=== PATIENT | female | born 1950 | race Caucasian/White ===

== ENCOUNTER 2016-10-07 06:07 | Emergency (ER) | payer BC ==
[~2016-10-07] VITALS: Ht 157.5 cm; Wt 95.1 kg
[~2016-10-07 06:07] MED LIST: HYDROCODON-ACE1 EAC7 PO; LISINOPRIL20 MG PO; METOPROLOL TART50 MG PO; PANTOPRAZOLE SO40 MG PO; VITAMIN B-12500 MC3 PO; VITAMIN D32000 UNI1 PO
[2016-10-07 07:27] LABS: HEMATOCRIT 41.3 % (36.0-46.0); MCH 28.9 PG (29.0-34.0); MCHC 34.6 G/DL (30.0-36.0); MCV 83.6 FL (83-99); MEAN PLAT.VOLUME 10.7 uM^3 (9.5-12.4); PLATELET COUNT 298 K/uL (156-360); RBC DIS.WIDTH-SD 42.1 % (39-53); RED BLOOD COUNT 4.94 M/uL (3.80-5.20)
[2016-10-07 07:28] LABS: WHITE BLOOD COUNT 10.6 K/uL (4.1-10.2)
[2016-10-07 07:39] LABS: CHLORIDE 99 mEq/L (99-109); POTASSIUM 4.1 mEq/L (3.7-5.4); SODIUM 133 mEq/L (136-147)
[2016-10-07 07:41] LABS: GLUCOSE 131 mg/dL (70-99)
[2016-10-07 07:42] LABS: ANION GAP 14 MEQ/L (2-14)
[2016-10-07 07:43] LABS: TOTAL BILIRUBIN 0.9 mg/dL (0.0-1.0)
[2016-10-07 07:45] LABS: ALKALINE PHOSPHATASE 77 IU/L (3-129); GFR ESTIMATE (CALCULATED) 48 mL/min/
[2016-10-07 07:46] LABS: UREA NITROGEN (BUN) 14 mg/dL (9-23)
[2016-10-07 11:45] VITALS: BP 103/68
== END 2016-10-07 11:49 | disposition home or self-care (01) ==
LOC: EME 06:07
DX: S20.212A Contusion of left front wall of thorax, initial encounter (principal); R42 Dizziness and giddiness; I10 Essential (primary) hypertension; K21.9 Gastro-esophageal reflux disease without esophagitis; W01.198A Fall on same level from slipping, tripping and stumbling with subsequent striking against other object, initial encounter; Z98.84 Bariatric surgery status; Z88.0 Allergy status to penicillin
CPT/HCPCS: 70450; 71101; 80053; 81003; 85027; 93005; 99281; 99284; J1885; J2765; J7030

== ENCOUNTER 2016-11-13 12:10 | Emergency (ER) | payer BC ==
[~2016-11-13] VITALS: Ht 160 cm; Wt 87.3 kg
[2016-11-13 12:48] LABS: HEMATOCRIT 41.6 % (36.0-46.0); MCH 29.2 PG (29.0-34.0); MCHC 34.6 G/DL (30.0-36.0); MCV 84.4 FL (83-99); MEAN PLAT.VOLUME 10.8 uM^3 (9.5-12.4); PLATELET COUNT 330 K/uL (156-360); RBC DIS.WIDTH-CV 13.5 % (11.8-14.6); RED BLOOD COUNT 4.93 M/uL (3.80-5.20); WHITE BLOOD COUNT 8.2 K/uL (4.1-10.2)
[2016-11-13 13:07] LABS: CHLORIDE 99 mEq/L (99-109); POTASSIUM 4.3 mEq/L (3.7-5.4); SODIUM 132 mEq/L (136-147)
[2016-11-13 13:08] LABS: GLUCOSE 128 mg/dL (70-99)
[2016-11-13 13:10] LABS: ANION GAP 13 MEQ/L (2-14); TROP-I INTERPRETATION NEGATIVE; TROPONIN-I 0.05 ng/mL (0.0-0.30)
[2016-11-13 13:12] LABS: GFR ESTIMATE (CALCULATED) > 59 mL/min/
[2016-11-13 13:13] LABS: UREA NITROGEN (BUN) 11 mg/dL (9-23)
[2016-11-13] MEDS ORDERED: LIDODERM 5% P1 PATCH TD (14:54)
[2016-11-13] MEDS ORDERED: PREDNISONE20 MG PO (14:54)
[2016-11-13] MEDS ORDERED: NAPROXEN500 MG PO (14:54)
[2016-11-13] MEDS ORDERED: FLEXERIL10 MG PO (14:54)
[2016-11-13 15:39] LABS: TOTAL BILIRUBIN 0.7 mg/dL (0.0-1.0)
[2016-11-13 15:40] LABS: ALKALINE PHOSPHATASE 82 IU/L (3-129)
[2016-11-13 15:42] LABS: DIRECT BILIRUBIN 0.3 mg/dL (0.0-0.3)
[2016-11-13 15:43] LABS: TROP-I INTERPRETATION NEGATIVE; TROPONIN-I 0.05 ng/mL (0.0-0.30)
[2016-11-13 16:02] VITALS: BP 100/78
== END 2016-11-13 16:02 | disposition left against medical advice (07) ==
LOC: EXP 12:10 → EME 12:10 → EXP 16:02
PROVIDERS: Physician Assistant
DX: R11.10 Vomiting, unspecified (principal); R07.89 Other chest pain; I10 Essential (primary) hypertension
CPT/HCPCS: 71020; 80048; 80076; 84484; 85027; 93005; 99281; 99284; J2765; J7030

== ENCOUNTER 2017-05-26 10:55 | Inpatient (IN) | payer OTHER, BC ==
[~2017-05-26] VITALS: Ht 160 cm; Wt 79.2 kg
[~2017-05-26 10:55] MED LIST changes: +FLEXERIL10 MG PO; +LIDODERM 5% P1 PATCH TD; +NAPROXEN500 MG PO; +PREDNISONE20 MG PO
[2017-05-26 11:23] LABS: MCH 30.7 PG (29.0-34.0); MCHC 34.2 G/DL (30.0-36.0); MCV 89.9 FL (83-99); MEAN PLAT.VOLUME 10.4 uM^3 (9.5-12.4); PLATELET COUNT 236 K/uL (156-360); RBC DIS.WIDTH-SD 42.2 % (39-53); RED BLOOD COUNT 5.34 M/uL (3.80-5.20); WHITE BLOOD COUNT 19.2 K/uL (4.1-10.2)
[2017-05-26 11:38] LABS: CHLORIDE 101 mEq/L (99-109); POTASSIUM 4.4 mEq/L (3.7-5.4); SODIUM 135 mEq/L (136-147)
[2017-05-26 11:39] LABS: GLUCOSE 197 mg/dL (70-99)
[2017-05-26 11:41] LABS: ANION GAP 23 MEQ/L (2-14)
[2017-05-26 11:43] LABS: GFR ESTIMATE (CALCULATED) 25 mL/min/
[2017-05-26 11:44] LABS: UREA NITROGEN (BUN) 23 mg/dL (9-23)
[2017-05-26 11:48] LABS: TROP-I INTERPRETATION NEGATIVE; TROPONIN-I 0.04 ng/mL (0.0-0.30)
[2017-05-26 14:38] LABS: ADD MIUA? YES; BILIRUBIN NEGATIVE; BLOOD MODERATE; COLOR YELLOW ((YELLOW)); GLUCOSE (STRIP) 150; KETONES 5; LEUKOCYTES NEGATIVE; NITRITE NEGATIVE; PROTEIN (STRIP) >=500; SPECIFIC GRAVITY 1.019 (1.000-1.030); UROBILINOGEN 0.2 MG/DL (0.2-1.0)
[2017-05-26 14:45] LABS: BACTERIA RARE /HPF; EPITHELIAL CELLS RARE /HPF; MUCUS TRACE /LPF; RED BLOOD CELLS 40-50 /HPF (0-5); UCUL ADDED? YES
[2017-05-26] MEDS ORDERED: SERTRALINE HCL50 MG PO (14:58)
[2017-05-26] MEDS ORDERED: TOPIRAMATE50 MG PO (14:59)
[2017-05-26] MEDS ORDERED: ASPIR-LOW81 MG PO (14:59)
[2017-05-26] MEDS ORDERED: PHENADOZ25 MG PR (14:59)
[2017-05-26 18:45] VITALS: BP 110/69
[2017-05-26 18:47] VITALS: BP 110/69
[2017-05-26 19:22] LABS: TROP-I INTERPRETATION NEGATIVE; TROPONIN-I 0.08 ng/mL (0.0-0.30)
[2017-05-26 22:28] VITALS: BP 86/50; BP 86/99
[2017-05-27 00:42] VITALS: BP 92/58
[2017-05-27 01:15] LABS: TROP-I INTERPRETATION NEGATIVE; TROPONIN-I 0.08 ng/mL (0.0-0.30)
[2017-05-27 02:54] VITALS: BP 122/88
[2017-05-27 05:53] LABS: HEMATOCRIT 32.8 % (36.0-46.0); MCHC 33.8 G/DL (30.0-36.0); MCV 91.6 FL (83-99); RBC DIS.WIDTH-CV 13.3 % (11.8-14.6); RED BLOOD COUNT 3.58 M/uL (3.80-5.20); WHITE BLOOD COUNT 9.8 K/uL (4.1-10.2)
[2017-05-27 06:15] LABS: MEAN PLAT.VOLUME 10.8 uM^3 (9.5-12.4); PLAT.SUFFICIENCY ADEQUATE
[2017-05-27 06:18] LABS: ALKALINE PHOSPHATASE 56 IU/L (3-129); ANION GAP 8 MEQ/L (2-14); CHLORIDE 107 MEQ/L (99-109); GFR ESTIMATE (CALCULATED) 23 mL/min/; PLATELET COUNT 149 K/uL (156-360); POTASSIUM 4.3 MEQ/L (3.7-5.4); SAMPLE HEMOLYSIS CHECK 0; SAMPLE ICTERIC CHECK 0; SAMPLE LIPEMIA CHECK 0; SODIUM 136 MEQ/L (136-147); TOTAL BILIRUBIN 0.7 MG/DL (0.0-1.0); VANCOMYCIN, TROUGH 12.7 MCG/ML (10-20)
[2017-05-27 06:20] LABS: GLUCOSE 102 mg/dL (70-99); UREA NITROGEN (BUN) 36 mg/dL (9-23)
[2017-05-27 09:45] VITALS: BP 111/71
[2017-05-27 11:25] VITALS: BP 112/71
[2017-05-27 16:12] VITALS: BP 117/81
[2017-05-27 19:17] VITALS: BP 135/97
[2017-05-28 00:20] VITALS: BP 104/57
[2017-05-28 04:00] VITALS: BP 134/82
[2017-05-28 05:44] LABS: EOSINOPHIL (%) 1.3 % (0-5); EOSINOPHIL COUNT 0.1 K/uL (0-0.3); HEMATOCRIT 27.9 % (36.0-46.0); IMMATURE GRANULOCYTE (%) 0.4 % (0.0-0.7); INSTRUMENT ABS NEUTROPHIL CT 3.2 K/uL; LYMPHOCYTE COUNT 1.5 K/uL (1.0-2.8); MCH 30.5 PG (29.0-34.0); MCV 92.4 FL (83-99); MEAN PLAT.VOLUME 10.5 uM^3 (9.5-12.4); MONOCYTE (%) 8.9 % (3-12); MONOCYTE COUNT 0.5 K/uL (0-0.8); NEUTROPHIL (%) 60.7 % (45-76); NEUTROPHIL COUNT 3.2 K/uL (1.8-6.4); PLATELET COUNT 119 K/uL (156-360); RBC DIS.WIDTH-CV 13.2 % (11.8-14.6); RBC DIS.WIDTH-SD 44.9 % (39-53); RED BLOOD COUNT 3.02 M/uL (3.80-5.20); WHITE BLOOD COUNT 5.3 K/uL (4.1-10.2)
[2017-05-28 06:35] LABS: ANION GAP 8 MEQ/L (2-14); CHLORIDE 110 MEQ/L (99-109); GFR ESTIMATE (CALCULATED) 28 mL/min/; GLUCOSE 86 mg/dL (70-99); MAGNESIUM 1.8 mg/dl (1.3-2.7); POTASSIUM 3.5 MEQ/L (3.7-5.4); SAMPLE HEMOLYSIS CHECK 0; SAMPLE ICTERIC CHECK 0; SAMPLE LIPEMIA CHECK 0; SODIUM 138 MEQ/L (136-147); UREA NITROGEN (BUN) 34 mg/dL (9-23); VANCOMYCIN, TROUGH 15.9 MCG/ML (10-20)
[2017-05-28 06:51] LABS: URIC ACID 5.6 mg/dL (3.1-9.2)
[2017-05-28 08:03] VITALS: BP 116/75
[2017-05-28 15:28] LABS: ADD MIUA? YES; BILIRUBIN NEGATIVE; BLOOD SMALL; COLOR STRAW ((YELLOW)); GLUCOSE (STRIP) NEGATIVE; KETONES NEGATIVE; LEUKOCYTES NEGATIVE; NITRITE NEGATIVE; PROTEIN (STRIP) NEGATIVE; SPECIFIC GRAVITY 1.011 (1.000-1.030); UROBILINOGEN 0.2 MG/DL (0.2-1.0)
[2017-05-28 16:34] LABS: BACTERIA NONE SEEN /HPF; EPITHELIAL CELLS RARE /HPF; MUCUS TRACE /LPF; RED BLOOD CELLS 0-5 /HPF (0-5); WHITE BLOOD CELLS 0-5 /HPF (0-5)
[2017-05-28 16:38] VITALS: BP 136/92
[2017-05-28 16:42] LABS: UR CREATININE CONCENTRATION 59.1 MG/DL
[2017-05-28 18:10] VITALS: BP 141/88
[2017-05-28 19:38] VITALS: BP 133/80
[2017-05-29 00:36] VITALS: BP 166/83
[2017-05-29 04:11] VITALS: BP 169/84
[2017-05-29 08:00] VITALS: BP 190/102
[2017-05-29 08:24] LABS: ANION GAP 16 MEQ/L (2-14); CHLORIDE 106 MEQ/L (99-109); GFR ESTIMATE (CALCULATED) 27 mL/min/; GLUCOSE 182 mg/dL (70-99); POTASSIUM 4.4 MEQ/L (3.7-5.4); SAMPLE HEMOLYSIS CHECK 1; SAMPLE ICTERIC CHECK 0; SAMPLE LIPEMIA CHECK 0; SODIUM 135 MEQ/L (136-147); UREA NITROGEN (BUN) 41 mg/dL (9-23)
[2017-05-29 10:08] LABS: BASOPHIL COUNT 0.1 K/uL (0-0.1); EOSINOPHIL (%) 0 % (0-5); HEMATOCRIT 45.6 % (36.0-46.0); IMMATURE GRANULOCYTE (%) 2.8 % (0.0-0.7); IMMATURE GRANULOCYTE COUNT 0.5 K/uL; LYMPHOCYTE COUNT 0.6 K/uL (1.0-2.8); MCH 30.7 PG (29.0-34.0); MCHC 34.6 G/DL (30.0-36.0); MCV 88.5 FL (83-99); MONOCYTE (%) 5.9 % (3-12); MONOCYTE COUNT 0.9 K/uL (0-0.8); NEUTROPHIL (%) 87.6 % (45-76); RBC DIS.WIDTH-CV 13.3 % (11.8-14.6); RBC DIS.WIDTH-SD 42.7 % (39-53)
[2017-05-29 10:11] LABS: BASE EXCESS -10.5 mEq/L (-3 to +3); BICARBONATE 13.2 mEq/L (22-26); CARBOXY HGB 2.8 % (0-5); COMMENTS - BLOOD GASES A+C+; FI02 21 %; METHEMOGLOBIN 1.7 % (0-1.5); PCO2 24 mm Hg (35-45); PO2 81 mm Hg (80-100); SITE RR; pH 7.35 (7.35-7.45)
[2017-05-29 10:16] LABS: RED BLOOD COUNT 5.15 M/uL (3.80-5.20)
[2017-05-29 10:58] LABS: MEAN PLAT.VOLUME 11.9 uM^3 (9.5-12.4); PLAT.SUFFICIENCY DECREASED
[2017-05-29 11:04] LABS: PLATELET COUNT 68 K/uL (156-360)
[2017-05-29 11:08] VITALS: BP 186/117
[2017-05-29 13:27] LABS: ANION GAP 12 MEQ/L (2-14); CHLORIDE 106 MEQ/L (99-109); CREATINE KINASE 71 IU/L (1-294); GFR ESTIMATE (CALCULATED) 24 mL/min/; GLUCOSE 158 mg/dL (70-99); POTASSIUM 4.2 MEQ/L (3.7-5.4); SAMPLE HEMOLYSIS CHECK 0; SAMPLE ICTERIC CHECK 0; SAMPLE LIPEMIA CHECK 0; SODIUM 133 MEQ/L (136-147); UREA NITROGEN (BUN) 41 mg/dL (9-23)
[2017-05-29 14:05] LABS: EOSINOPHIL (%) 0 % (0-5); HEMATOCRIT 36.3 % (36.0-46.0); IMMATURE GRANULOCYTE (%) 1.7 % (0.0-0.7); IMMATURE GRANULOCYTE COUNT 0.2 K/uL; INSTRUMENT ABS NEUTROPHIL CT 9.1 K/uL; LYMPHOCYTE COUNT 0.6 K/uL (1.0-2.8); MCH 31.2 PG (29.0-34.0); MCHC 35.5 G/DL (30.0-36.0); MCV 87.9 FL (83-99); MONOCYTE (%) 7.5 % (3-12); MONOCYTE COUNT 0.8 K/uL (0-0.8); NEUTROPHIL (%) 84.5 % (45-76); NEUTROPHIL COUNT 9.1 K/uL (1.8-6.4); RBC DIS.WIDTH-CV 13.3 % (11.8-14.6); RBC DIS.WIDTH-SD 43.1 % (39-53); RED BLOOD COUNT 4.13 M/uL (3.80-5.20); WHITE BLOOD COUNT 10.7 K/uL (4.1-10.2)
[2017-05-29 14:13] LABS: IMM.PLATELET FRACTION 7.1 (1-7); MEAN PLAT.VOLUME 11.3 uM^3 (9.5-12.4); PLAT.SUFFICIENCY DECREASED; PLATELET COUNT 49 K/uL (156-360)
[2017-05-29 16:19] LABS: ADD MIUA? YES; BILIRUBIN NEGATIVE; BLOOD LARGE; COLOR YELLOW ((YELLOW)); GLUCOSE (STRIP) 50; KETONES 5; LEUKOCYTES NEGATIVE; NITRITE NEGATIVE; PROTEIN (STRIP) 100; SPECIFIC GRAVITY 1.014 (1.000-1.030); UROBILINOGEN 0.2 MG/DL (0.2-1.0)
[2017-05-29 16:30] LABS: BACTERIA RARE /HPF; EPITHELIAL CELLS RARE /HPF; GRANULAR CASTS 0-5 /LPF; HYALINE CASTS 0-5 /LPF; MUCUS TRACE /LPF; RED BLOOD CELLS 20-30 /HPF (0-5); WHITE BLOOD CELLS 0-5 /HPF (0-5)
[2017-05-29 16:40] VITALS: BP 168/102
[2017-05-29 16:54] LABS: DIRECT BILIRUBIN 0.2 mg/dL (0.0-0.3)
[2017-05-29 16:59] LABS: ALKALINE PHOSPHATASE 70 IU/L (3-129); LACTATE DEHYDROGENASE 1083 IU/L (20-246); TOTAL BILIRUBIN 1.4 MG/DL (0.0-1.0)
[2017-05-29 17:18] LABS: HEMATOCRIT 34.3 % (36.0-46.0); IMM.RETIC FRACTION 16.9 % (3-19); MCHC 36.2 G/DL (30.0-36.0); MCV 88.6 FL (83-99); RBC DIS.WIDTH-CV 13.8 % (11.8-14.6); RBC DIS.WIDTH-SD 44.4 % (39-53); RED BLOOD COUNT 3.87 M/uL (3.80-5.20); RETIC HGB EQUIVALENT 36.6 (28-36); RETICULOCYTE COUNT 2.7 % (0.5-1.8); WHITE BLOOD COUNT 9.7 K/uL (4.1-10.2)
[2017-05-29 19:30] VITALS: BP 179/89
[2017-05-29 19:43] LABS: ABS NEUTROPHIL COUNT 7.8; EOSINOPHIL ABS CT 0; INSTRUMENT ABS NEUTROPHIL CT 7.5 K/uL
[2017-05-29 20:27] LABS: MEAN PLAT.VOLUME 12.2 uM^3 (9.5-12.4); PLATELET COUNT 45 K/uL (156-360)
[2017-05-30] VITALS: BP 100/70
[2017-05-30 03:58] VITALS: BP 138/77
[2017-05-30 04:50] LABS: EOSINOPHIL (%) 0.9 % (0-5); EOSINOPHIL COUNT 0.1 K/uL (0-0.3); IMMATURE GRANULOCYTE COUNT 0.1 K/uL; INSTRUMENT ABS NEUTROPHIL CT 4.7 K/uL; LYMPHOCYTE COUNT 1.3 K/uL (1.0-2.8); MCH 30.9 PG (29.0-34.0); MCHC 34.8 G/DL (30.0-36.0); MCV 88.7 FL (83-99); MEAN PLAT.VOLUME 11.8 uM^3 (9.5-12.4); MONOCYTE (%) 10.1 % (3-12); MONOCYTE COUNT 0.7 K/uL (0-0.8); NEUTROPHIL (%) 68.6 % (45-76); NEUTROPHIL COUNT 4.7 K/uL (1.8-6.4); PLATELET COUNT 54 K/uL (156-360); RBC DIS.WIDTH-CV 13.8 % (11.8-14.6); RBC DIS.WIDTH-SD 44.5 % (39-53); RED BLOOD COUNT 2.82 M/uL (3.80-5.20); WHITE BLOOD COUNT 6.8 K/uL (4.1-10.2)
[2017-05-30 04:53] LABS: CHLORIDE 110 mEq/L (99-109)
[2017-05-30 04:54] LABS: POTASSIUM 3.7 mEq/L (3.7-5.4); SODIUM 137 mEq/L (136-147)
[2017-05-30 05:23] LABS: MAGNESIUM 1.5 mg/dL (1.3-2.7)
[2017-05-30 05:28] LABS: ANION GAP 10 MEQ/L (2-14)
[2017-05-30 05:30] LABS: GFR ESTIMATE (CALCULATED) 23 mL/min/
[2017-05-30 05:31] LABS: UREA NITROGEN (BUN) 44 mg/dL (9-23)
[2017-05-30 05:35] LABS: GLUCOSE 104 mg/dL (70-99)
[2017-05-30 07:43] VITALS: BP 116/63
[2017-05-30 11:26] VITALS: BP 130/86
[2017-05-30 14:30] LABS: C3 COMPLEMENT 101 MG/DL (58-170); C4 COMPLEMENT 21 MG/DL (10-40)
[2017-05-30 15:42] VITALS: BP 136/79
[2017-05-30 16:07] LABS: ABSOLUTE RETICULOCYTE CT. 0.1 M/uL (0.02-0.08); IMM.RETIC FRACTION 9.9 % (3-19); RETIC HGB EQUIVALENT 37.3 (28-36); RETICULOCYTE COUNT 2.7 % (0.5-1.8)
[2017-05-30 17:07] LABS: HBSG INDEX 0.19; HPCA INDEX 0.06
[2017-05-30 17:08] LABS: ANTI-HEPATITIS A VIRUS (IGM) Nonreactive; HAV INDEX 0.23
[2017-05-30 17:09] LABS: ANTI-HEPATITIS B CORE (IGM) Nonreactive; HBC IgM INDEX 0.07
[2017-05-30 19:55] VITALS: BP 133/73
[2017-05-31 00:23] VITALS: BP 137/78
[2017-05-31 03:36] VITALS: BP 120/76
[2017-05-31 07:10] VITALS: BP 144/96
[2017-05-31 07:20] LABS: EOSINOPHIL (%) 1.4 % (0-5); EOSINOPHIL COUNT 0.1 K/uL (0-0.3); HEMATOCRIT 22.8 % (36.0-46.0); IMMATURE GRANULOCYTE (%) 1.2 % (0.0-0.7); IMMATURE GRANULOCYTE COUNT 0.1 K/uL; INSTRUMENT ABS NEUTROPHIL CT 2.8 K/uL; LYMPHOCYTE COUNT 1.5 K/uL (1.0-2.8); MCH 31.1 PG (29.0-34.0); MCHC 34.6 G/DL (30.0-36.0); MCV 89.8 FL (83-99); MEAN PLAT.VOLUME 12.4 uM^3 (9.5-12.4); MONOCYTE (%) 10.1 % (3-12); MONOCYTE COUNT 0.5 K/uL (0-0.8); NEUTROPHIL (%) 57.1 % (45-76); NEUTROPHIL COUNT 2.8 K/uL (1.8-6.4); PLATELET COUNT 60 K/uL (156-360); RBC DIS.WIDTH-CV 13.8 % (11.8-14.6); RBC DIS.WIDTH-SD 44.9 % (39-53); RED BLOOD COUNT 2.54 M/uL (3.80-5.20); WHITE BLOOD COUNT 4.9 K/uL (4.1-10.2)
[2017-05-31 08:11] LABS: ALKALINE PHOSPHATASE 46 IU/L (3-129); ANION GAP 6 MEQ/L (2-14); CHLORIDE 105 MEQ/L (99-109); GFR ESTIMATE (CALCULATED) 24 mL/min/; GLUCOSE 91 mg/dL (70-99); POTASSIUM 3.8 MEQ/L (3.7-5.4); SAMPLE HEMOLYSIS CHECK 0; SAMPLE ICTERIC CHECK 0; SAMPLE LIPEMIA CHECK 0; SODIUM 133 MEQ/L (136-147); UREA NITROGEN (BUN) 37 mg/dL (9-23)
[2017-05-31 08:15] LABS: TOTAL BILIRUBIN 0.5 MG/DL (0.0-1.0)
[2017-05-31 18:24] VITALS: BP 160/95
[2017-06-01 06:28] LABS: ANION GAP 7 MEQ/L (2-14); CHLORIDE 104 MEQ/L (99-109); GFR ESTIMATE (CALCULATED) 27 mL/min/; GLOBULINS 2.1 G/DL (2.3-3.5); GLUCOSE 94 mg/dL (70-99); IRON 61 MCG/DL (35-150); POTASSIUM 3.7 MEQ/L (3.7-5.4); SAMPLE HEMOLYSIS CHECK 0; SAMPLE ICTERIC CHECK 0; SAMPLE LIPEMIA CHECK 0; SODIUM 135 MEQ/L (136-147); UREA NITROGEN (BUN) 28 mg/dL (9-23)
[2017-06-01 06:37] LABS: HEMATOCRIT 23.7 % (36.0-46.0); MCH 30.7 PG (29.0-34.0); MCHC 34.2 G/DL (30.0-36.0); MCV 89.8 FL (83-99); MEAN PLAT.VOLUME 10.8 uM^3 (9.5-12.4); RBC DIS.WIDTH-CV 13.6 % (11.8-14.6); RBC DIS.WIDTH-SD 44.4 % (39-53); RED BLOOD COUNT 2.64 M/uL (3.80-5.20)
[2017-06-01 06:42] LABS: PLATELET COUNT 79 K/uL (156-360)
[2017-06-01 07:30] VITALS: BP 163/96
[2017-06-01] MEDS ORDERED: LEVAQUIN500 MG PO (12:16)
[2017-06-03 09:18] LABS: ALBUMIN 3.01 G/DL (3.6-4.9); ALBUMIN PERCENT 62.8 % (49.3-67.1); ALPHA-1 GLOBULIN 0.33 G/DL (0.15-0.40); ALPHA-1 PERCENT 6.9 % (2.1-5.5); ALPHA-2 GLOBULIN 0.43 G/DL (0.45-0.85); ALPHA-2 PERCENT 8.9 % (6.2-11.6); BETA PERCENT 11.8 % (8.9-15.8); GAMMA PERCENT 9.6 % (8.6-18.6)
[2017-06-03 17:40] LABS: GLOMERULAR BASEMENT MEMB ABY+ <1.0 AI (<1.0)
[2017-06-03 20:40] LABS: Neutrophil Cytoplasmic Aby Negative (Negative)
== END 2017-06-01 13:10 | disposition home or self-care (01) | DRG 871 ==
LOC: EME 10:55 → EDOF 15:38 → 4EAST 15:38 → ENRESERV 15:39 → 4EAST 18:19 → ENRESERV 05-28 15:47 → 2EAST 05-28 18:03
PROVIDERS: Emergency Medicine; Family Medicine; Internal Medicine; Internal Medicine Hematology & Oncology; Internal Medicine Nephrology; Nurse Practitioner Family
DX: A41.9 Sepsis, unspecified organism (principal); N17.0 Acute kidney failure with tubular necrosis; E87.2 Acidosis; K21.9 Gastro-esophageal reflux disease without esophagitis; I10 Essential (primary) hypertension; D69.6 Thrombocytopenia, unspecified; E66.9 Obesity, unspecified; K52.9 Noninfective gastroenteritis and colitis, unspecified; E86.0 Dehydration; D64.9 Anemia, unspecified; N20.0 Calculus of kidney; F32.9 Major depressive disorder, single episode, unspecified; G43.909 Migraine, unspecified, not intractable, without status migrainosus; K59.00 Constipation, unspecified; E87.6 Hypokalemia; R65.20 Severe sepsis without septic shock; K57.30 Diverticulosis of large intestine without perforation or abscess without bleeding; N28.1 Cyst of kidney, acquired; Z90.49 Acquired absence of other specified parts of digestive tract; Z87.440 Personal history of urinary (tract) infections; Z98.84 Bariatric surgery status; Z68.30 Body mass index [BMI] 30.0-30.9, adult; T36.8X5A Adverse effect of other systemic antibiotics, initial encounter
CPT/HCPCS: 36600; 71020; 74176; 76770; 80048; 80048 91; 80053; 80074; 80076; 80202; 81003; 82550; 82570; 82607; 82746; 82803; 83520 90; 83540; 83605; 83615; 83735; 83883 90; 84100; 84156; 84165; 84466; 84484; 84550; 85007; 85025; 85025 91; 85027; 85045; 85060; 86021 90; 86038; 86160; 86162 90; 86334; 87040; 87086; 87086 GA; 87493; 89190; 93005; 99281; 99285; C1753; C9113; J0692; J0696; J0881; J1644; J1956; J2270; J2765; J3370; J7030; J7050; S0028